=== PATIENT | female | born 1955 | race Caucasian/White ===

== ENCOUNTER → 2017-07-13 | Outpatient (CLI) | payer BC ==
[~2017-07-13] MED LIST: ATOXIMETIN-B1 CAP PO; CALCIUM1 CAP PO; CIPRO 100MG TA100 MG PO; PREMARIN0.3 MG PO
== END ==
LOC: MC.RAD 10:48
DX: Z12.31 Encounter for screening mammogram for malignant neoplasm of breast (principal)